=== PATIENT | female | born 1995 | race Caucasian/White ===

== ENCOUNTER 2023-05-15 12:55 | Emergency (ER) | payer OTHER ==
[2023-05-15 13:15] VITALS: BP 145/82; PULSE 88; RESP 20; TEMP 98.2; BMI 38.0
== END 2023-05-15 14:18 | disposition home or self-care (01) ==
LOC: FER 12:55
DX: S59.901A Unspecified injury of right elbow, initial encounter (principal); M25.521 Pain in right elbow; W01.0XXA Fall on same level from slipping, tripping and stumbling without subsequent striking against object, initial encounter; Y93.89 Activity, other specified; Z20.822 Contact with and (suspected) exposure to COVID-19
CPT/HCPCS: 0241U-QW; 73070-TC-RT-FY; 99284-25